=== PATIENT | male | born 1940 | race Caucasian/White ===

== ENCOUNTER 2023-03-23 09:35 | Emergency (ER) | payer OTHER | END 2023-03-23 11:19 | disposition home or self-care (01) | LOC: JP.ED 09:35 | DX: S00.03XA Contusion of scalp, initial encounter (principal); I48.91 Unspecified atrial fibrillation; I25.10 Atherosclerotic heart disease of native coronary artery without angina pectoris; E78.00 Pure hypercholesterolemia, unspecified; I10 Essential (primary) hypertension; I25.2 Old myocardial infarction; Z79.01 Long term (current) use of anticoagulants; Z86.16 Personal history of COVID-19; W19.XXXA Unspecified fall, initial encounter; W22.8XXA Striking against or struck by other objects, initial encounter | CPT/HCPCS: 99283 ==

== ENCOUNTER 2025-07-08 16:35 | Emergency (ER) | payer OTHER ==
[2025-07-08 17:03] LABS: BASOPHILS ABSOLUTE AUTO 0.04 K/uL (0.00-0.10); BASOPHILS PERCENT AUTO 0.6 % (0.1-1.3); EOSINOPHILS ABSOLUTE AUTO 0.14 K/uL (0.00-0.40); EOSINOPHILS PERCENT AUTO 2.1 % (0.0-5.4); IMMATURE GRAN ABSOLUTE AUTO 0.05 K/uL (0.00-0.23); IMMATURE GRAN PERCENT AUTO 0.7 % (0.0-0.7); LYMPHOCYTES ABSOLUTE AUTO 0.94 K/uL (0.8-3.3); LYMPHOCYTES PERCENT AUTO 14.0 % (11.4-47.7); MONOCYTES ABSOLUTE AUTO 0.59 K/uL (0.20-0.90); MONOCYTES PERCENT AUTO 8.8 % (3.3-12.6); NEUTROPHILS ABSOLUTE AUTO 4.94 K/uL (1.0-7.6); NEUTROPHILS PERCENT AUTO 73.8 % (40.0-78.1); PLATELET COUNT,PLT 207 K/uL (130-375); RED BLOOD CELL COUNT 4.40 M/uL (4.14-5.76); WHITE BLOOD CELL COUNT,WBC 6.7 K/uL (3.2-11.0)
[2025-07-08 17:28] LABS: A/G RATIO 0.6 (1.2-2.2); ALANINE AMINOTRANSFERASE,ALT 40 U/L (12-78); ASPARTATE AMNIOTRANSFERASE,AST 55 U/L (15-37); BILIRUBIN TOTAL 1.7 mg/dL (0.2-1.0); BLOOD UREA NITROGEN,BUN 17 mg/dL (7-18); CARBON DIOXIDE,CO2 30 mmol/L (21-32); CHLORIDE,CL 94 mmol/L (100-108); CREATININE 1.2 mg/dL (0.8-1.3); EST CRCL DRUG DOSING (CG) 39.88 mL/min; ESTIMATED GFR 59 mL/min (>60); GLUCOSE RANDOM 167 mg/dL (74-106); POTASSIUM,K 4.1 mmol/L (3.6-5.2); PROTEIN TOTAL,TP 7.6 g/dL (6.4-8.2); SODIUM,NA 131 mmol/L (140-148)
[2025-07-08 17:34] LABS: LACTIC ACID 2.5 mmol/L (0.4-2.0)
[2025-07-08] MEDS: Iopamidol 612 MG/ML 100 ML Bottle IV ONE (18:44)
[2025-07-08] MEDS: Sodium Chloride 0.9% 10 ML Syringe FLUSH ONE (18:44)
[2025-07-08 19:59] LABS: APPEARANCE,URINE CLEAR (CLEAR); GLUCOSE,URINE NEGATIVE (NEGATIVE); OCCULT BLOOD,URINE TRACE-INTACT (NEGATIVE)
[2025-07-08 20:09] LABS: SQUAMOUS EPITHELIAL CELLS,UR RARE /HPF; UROTHELIAL CELLS,URINE NOT SEEN /HPF
[2025-07-08] MEDS: Lidocaine 1% with EPINEPHrine 1:100,000 20 ML MDV INJECT ONE (20:34)
== END 2025-07-08 22:07 | disposition home or self-care (01) ==
LOC: JP.ED 16:35
DX: K70.31 Alcoholic cirrhosis of liver with ascites (principal); I48.91 Unspecified atrial fibrillation; I25.10 Atherosclerotic heart disease of native coronary artery without angina pectoris; I10 Essential (primary) hypertension; I25.2 Old myocardial infarction; E78.00 Pure hypercholesterolemia, unspecified; Z79.01 Long term (current) use of anticoagulants; Z79.899 Other long term (current) drug therapy; Z91.030 Bee allergy status
CPT/HCPCS: 36415; 74177; 80053; 81001; 83605; 83690; 83735; 84443; 85025; 86140; 87040; 99285; J7030; Q9967

== ENCOUNTER 2025-08-31 12:27 | Emergency (ER) | payer OTHER ==
[2025-08-31 14:32] LABS: BASOPHILS ABSOLUTE AUTO 0.06 K/uL (0.00-0.10); BASOPHILS PERCENT AUTO 0.6 % (0.1-1.3); EOSINOPHILS ABSOLUTE AUTO 0.05 K/uL (0.00-0.40); EOSINOPHILS PERCENT AUTO 0.5 % (0.0-5.4); IMMATURE GRAN ABSOLUTE AUTO 0.10 K/uL (0.00-0.23); IMMATURE GRAN PERCENT AUTO 1.0 % (0.0-0.7); LYMPHOCYTES ABSOLUTE AUTO 0.77 K/uL (0.8-3.3); LYMPHOCYTES PERCENT AUTO 8.0 % (11.4-47.7); MONOCYTES ABSOLUTE AUTO 0.63 K/uL (0.20-0.90); MONOCYTES PERCENT AUTO 6.5 % (3.3-12.6); NEUTROPHILS ABSOLUTE AUTO 8.05 K/uL (1.0-7.6); NEUTROPHILS PERCENT AUTO 83.4 % (40.0-78.1); PLATELET COUNT,PLT 165 K/uL (130-375); RED BLOOD CELL COUNT 4.62 M/uL (4.14-5.76); WHITE BLOOD CELL COUNT,WBC 9.7 K/uL (3.2-11.0)
[2025-08-31 14:47] LABS: INR 1.3
[2025-08-31 15:03] LABS: A/G RATIO 0.6 (1.2-2.2); ALANINE AMINOTRANSFERASE,ALT 51 U/L (12-78); ASPARTATE AMNIOTRANSFERASE,AST 62 U/L (15-37); BILIRUBIN TOTAL 5.3 mg/dL (0.2-1.0); BLOOD UREA NITROGEN,BUN 32 mg/dL (7-18); CARBON DIOXIDE,CO2 27 mmol/L (21-32); CHLORIDE,CL 95 mmol/L (100-108); CREATININE 1.3 mg/dL (0.8-1.3); EST CRCL DRUG DOSING (CG) 34.79 mL/min; ESTIMATED GFR 54 mL/min (>60); GLUCOSE RANDOM 109 mg/dL (74-106); POTASSIUM,K 5.1 mmol/L (3.6-5.2); PROTEIN TOTAL,TP 8.2 g/dL (6.4-8.2); SODIUM,NA 130 mmol/L (140-148)
[2025-08-31 17:57] LABS: APPEARANCE,URINE SLIGHTLY CLOUDY (CLEAR)
[2025-08-31 17:58] LABS: SQUAMOUS EPITHELIAL CELLS,UR NOT SEEN /HPF; UROTHELIAL CELLS,URINE NOT SEEN /HPF
== END 2025-08-31 20:20 | disposition home or self-care (01) ==
LOC: JP.ED 12:27
DX: R45.1 Restlessness and agitation (principal); R33.9 Retention of urine, unspecified; I48.91 Unspecified atrial fibrillation; I10 Essential (primary) hypertension; E78.00 Pure hypercholesterolemia, unspecified; Z91.030 Bee allergy status; Z79.01 Long term (current) use of anticoagulants; Z79.899 Other long term (current) drug therapy; Z90.49 Acquired absence of other specified parts of digestive tract
CPT/HCPCS: 36415; 51702; 51798; 71045; 71045-26; 74176; 80053; 81001; 82140; 85025; 85610; 99285-25